=== PATIENT | male | born 1945 | race Caucasian/White ===

== ENCOUNTER 2017-09-10 16:45 | Emergency (ER) | payer MEDICARE ==
[~2017-09-10] VITALS: Ht 180.3 cm; Wt 80.7 kg
[~2017-09-10 16:45] MED LIST: ACETAMINOPHEN325 M1 PO; ACIDOPHILUS1 EAC1 PO; ACTOS45 MG PO; ANTIVERT25 MG PO; AUGMENTIN 500-1 EACH PO; CENTRUM SILVER1 EAC3 PO; CLINDAMYCIN HC300 MG PO; CYANOCOBAL1000 MCG/M INJ; DOCUSATE SODIU100 M1 PO; DOCUSATE SODIU100 MG PO; FERROUS SULFAT325 M1 PO; FERROUS SULFAT325 MG PO; FLUDROCORTISON0.1 MG PO; GLIPIZIDE10 MG; GLIPIZIDE5 MG PO; GUAIFENESI100 MG/5 M PO; IBUPROFEN400 MG PO; LEVEMIR100 UNIT/1 SC; LIDODERM700 MG TOP; LOVASTATIN40 MG PO; METOPROLOL SUCC25 MG PO; METOPROLOL TART25 MG PO; METOPROLOL TART50 MG PO; MIDODRINE HCL2.5 MG PO; MULTILEX1 EACH PO; MULTIVITAMINS1 EAC7 PO; NORCO 5-325 TA1 EACH PO; NOVOLOG100 UNIT/1 SC; NOVOLOG100 UNIT/1 SQ; OMEPRAZOLE PO; ONDANSETRO4 MG/UDTAB SL; ONDANSETRON HCL4 MG PO; OXYBUTYNIN CHLOR5 MG PO; PANTOPRAZOLE SO40 MG PO; PHENERGAN SUPP25 MG RC; PIPERACIL-TA3.375 GM IV; PRILOSEC20 MG PO; SANTYL15 GM TOP; SUCRALFATE1 GM PO; ULTRAM 50MG50 MG PO; ULTRAM50 MG PO; VANCOMYCIN HCL1 GM PO; VITAMIN C500 M4 PO; VITAMIN D250000 UNIT PO; XANAX0.5 MG PO; ZINC OXIDE30 GM TOP
[2017-09-10] MEDS ORDERED: ACETAMINOPHEN/CODEINE 300MG - 30MG TAB PO ONE (17:45)
--- NOTE | 2017-09-10 18:50 | Diagnostic Imaging Report ---
PROCEDURE:KNEE LEFT THREE VIEWS COMPARISON:None. 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 There are 2 fixating proximal tibial pins. There also surgical clips and small ossified fragments adjacent to the proximal tibia. 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 Vascular calcifications. No suprapatellar joint effusion. CONCLUSION: Status post left lower extremity amputation at the level of the proximal tibial diaphysis. 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 Tiny ossified densities adjacent to the proximal tibia are probably postsurgical, although small avulsion fractures cannot be entirely excluded. Dictated by: Robert Mclaughlin M.D. on 09/10/2017 at 18:59 Electronically approved by: Robert Mclaughlin M.D. on 09/10/2017 at 18:59
[2017-09-10] MEDS ORDERED: ACETAMINOPHEN/CODEINE 300MG - 30MG TAB ONE (20:58)
== END 2017-09-10 22:30 | disposition home or self-care (01) ==
LOC: ER 16:45
DX: T87.81 Dehiscence of amputation stump (principal); W18.11XA Fall from or off toilet without subsequent striking against object, initial encounter; Y92.002 Bathroom of unspecified non-institutional (private) residence as the place of occurrence of the external cause; Z95.1 Presence of aortocoronary bypass graft
CPT/HCPCS: 99283

== ENCOUNTER 2017-09-18 12:58 | Observation (INO) | payer MEDICARE ==
[~2017-09-18] VITALS: Ht 180.3 cm; Wt 71.7 kg
[2017-09-18] MEDS ORDERED: ASPIRIN 81 MG CHEW TAB PO STA (13:02)
--- NOTE | 2017-09-18 13:51 | Diagnostic Imaging Report ---
PROCEDURE: A single AP view of the chest. COMPARISON: Patients [facility], CT, CT CHEST WO, 05/25/2016, 10:29. Patients [facility], DX, CHEST 2 VIEWS, 06/21/2017, 10:45. INDICATIONS: RIGHT SIDE RIB PAIN. FINDINGS: Lines/tubes: None. Lungs: Lungs are mildly hypoinflated. Multiple linear opacities are again noted in the lateral aspect of the right lung, with sutures projecting in the right upper lung, likely reflecting postoperative changes/scarring. No consolidation. Pleura: Slight increase in blunting of the left lateral costophrenic sulcus. Heart and mediastinum: Stable cardiomegaly. Central pulmonary venous congestion. Bones: No acute bony abnormality. No acute displaced fracture or dislocation. Degenerative changes in bilateral glenohumeral joints. IMPRESSION: 1. slight increase in blunting of the left lateral costophrenic sulcus, which may represent increased pleural thickening versus small pleural effusion. No consolidation. 2. Central pulmonary venous congestion. Brendan Keys M.D. Dictated by: Brendan Keys M.D. on 09/18/2017 at 14:01 Electronically approved by: Brendan Keys M.D. on 09/18/2017 at 14:01
[2017-09-18 15:06] LABS: BASOPHILS % 0.3 % (0.0-1.0); EOSINOPHILS # (AUTO) 0.2 (0.0-0.4); EOSINOPHILS % 1.8 % (0.0-6.0); HEMATOCRIT 35.9 % (38.2-49.6); HEMOGLOBIN 11.5 g/dL (14.0-18.0); LYMPHOCYTES # (AUTO) 3.6 (1.0-3.2); LYMPHOCYTES % 30.8 % (18.0-39.1); MEAN CORPUSCULAR VOLUME 90.4 fL (81-99); MONOCYTES # (AUTO) 0.8 (0.2-0.8); MONOCYTES % 6.7 % (4.4-11.3); NEUTROPHILS # (AUTO) 7.1 (2.1-6.9); NEUTROPHILS % 60.1 % (38.7-80.0); PLATELET COUNT 289 x10e3/uL (140-360); RED BLOOD COUNT 3.97 x10e6/uL (4.3-5.7); RED CELL DISTRIBUTION WIDTH 14.7 % (11.7-14.4)
[2017-09-18 15:10] LABS: INR 0.94
[2017-09-18 15:11] LABS: PARTIAL THROMBOPLASTIN TIME 28.5 seconds (23.8-35.5)
[2017-09-18 15:18] LABS: ALBUMIN 3.2 g/dL (3.5-5.0); ALBUMIN/GLOBULIN RATIO 0.9 (0.8-2.0); ANION GAP 15.7 mmol/L (8-16); CALCIUM 9.2 mg/dL (8.4-10.2); CREATININE, SERUM 1.61 mg/dL (0.72-1.25); POTASSIUM 5.7 mmol/L (3.5-5.1)
[2017-09-18 15:27] LABS: CREATINE KINASE MB 1.8 ng/mL (0.00-5.00); TROPONIN I 0.024 ng/mL (0-0.300)
[2017-09-18 17:02] LABS: ALBUMIN 3.7 g/dL (3.5-5.0); ALBUMIN/GLOBULIN RATIO 1.1 (0.8-2.0); ANION GAP 17.3 mmol/L (8-16); CALCIUM 9.6 mg/dL (8.4-10.2); CREATININE, SERUM 1.73 mg/dL (0.72-1.25)
[2017-09-18 17:08] LABS: CREATINE KINASE MB 1.8 ng/mL (0.00-5.00); TROPONIN I 0.031 ng/mL (0-0.300)
[2017-09-18 17:11] LABS: POTASSIUM 5.3 mmol/L (3.5-5.1)
[2017-09-18] MEDS ORDERED: SODIUM CHLORIDE 0.9% 500ML 500 ML IV STA (17:38)
[2017-09-18 19:02] LABS: BILIRUBIN,URINE NEGATIVE (NEGATIVE); KETONES,URINE NEGATIVE (NEGATIVE); LEUKOCYTE ESTERASE ,URINE NEGATIVE (NEGATIVE); NITRITE,URINE NEGATIVE (NEGATIVE); PROTEIN,URINE DIPSTICK NEGATIVE (NEGATIVE); URINE UROBILINOGEN 0.2 mg/dL (0.2 - 1)
[2017-09-18 19:03] LABS: CLARITY,URINE CLEAR (CLEAR); COLOR,URINE YELLOW (YELLOW)
[2017-09-18] MEDS ORDERED: SODIUM CHLORIDE 0.9% 250ML 500 ML ONE (20:18)
[2017-09-18] MEDS: HYDROCODONE/APAP 7.5MG-325MG 1 EA TAB PO PRN (20:20)
[2017-09-18] MEDS ORDERED: DEXTROSE 50% SYRINGE 50 ML IV PRN (22:30)
--- NOTE | 2017-09-18 23:06 | Diagnostic Imaging Report ---
EXAM: VQ LUNG SCAN VENT PERFUSION DATE: 09/18/2017 12:00 AM Time stamp on exam: 2257 hours INDICATION: ] Pain, left rib pain, recent lower extremity amputation now with severe chest pain COMPARISON: None FINDINGS: Ventilation images of the lungs were obtained in multiple projections following administration of 20 mCi of Xenon gas via inhalation. Distribution of tracer activity is mildly irregular throughout the lungs. No segmental ventilatory defects are identified. Perfusion images of the lungs in multiple projections were obtained following intravenous administration of 6.2mCi of Tc-99m MAA. Distribution of tracer activity is mildly irregular throughout the lungs. There are no segmental perfusion defects of any size. The perfusion images are well matched to the aerosol images. The cardiac silhouette is unremarkable. IMPRESSION: Scan findings represent a very low probability for acute pulmonary embolic disease based on the PIOPED II criteria. Signed by: Dr. Denisse Alvarado M.D. on 09/18/2017 11:02 PM
[2017-09-19] VITALS (9 sets, daily range): BP systolic 103–161; BP diastolic 50–70
[2017-09-19] MEDS: HYDROCODONE/APAP 7.5MG-325MG 1 EA TAB PO PRN (06:19)
[2017-09-19 06:43] LABS: BASOPHILS % 0.3 % (0.0-1.0); EOSINOPHILS # (AUTO) 0.3 (0.0-0.4); EOSINOPHILS % 2.5 % (0.0-6.0); HEMATOCRIT 29.7 % (38.2-49.6); HEMOGLOBIN 9.7 g/dL (14.0-18.0); LYMPHOCYTES % 27.9 % (18.0-39.1); MEAN CORPUSCULAR HGB CONC 32.7 g/dL (31-35); MEAN CORPUSCULAR VOLUME 88.9 fL (81-99); MONOCYTES # (AUTO) 0.8 (0.2-0.8); MONOCYTES % 7.1 % (4.4-11.3); NEUTROPHILS # (AUTO) 6.7 (2.1-6.9); NEUTROPHILS % 61.8 % (38.7-80.0); PLATELET COUNT 249 x10e3/uL (140-360); RED BLOOD COUNT 3.34 x10e6/uL (4.3-5.7); RED CELL DISTRIBUTION WIDTH 14.7 % (11.7-14.4)
[2017-09-19 07:04] LABS: TROPONIN I 0.018 ng/mL (0-0.300)
[2017-09-19 07:05] LABS: ALANINE AMINOTRANSFERASE 11 IU/L (0-55); ALBUMIN 2.6 g/dL (3.5-5.0); ALKALINE PHOSPHATASE 66 IU/L (40-150); ANION GAP 10.3 mmol/L (8-16); BLOOD UREA NITROGEN 27 mg/dL (7-26); BUN/CREATININE RATIO 20 (6-25); CALCIUM 8.4 mg/dL (8.4-10.2); CARBON DIOXIDE 26 mmol/L (22-29); CHLORIDE 107 mmol/L (98-107); CHOL/HDL RATIO 4.5 (3.9-4.7); CHOLESTEROL 127 MD/DL (0-199); CREATININE, SERUM 1.32 mg/dL (0.72-1.25); EST GLOMERULAR FILTRATION RATE 53 ML/MIN (60-); GLUCOSE 132 mg/dL (74-118); HDL CHOLESTEROL 28 MG/DL (40-60); LDL CHOLESTEROL 84 MG/DL (60-130); POTASSIUM 4.3 mmol/L (3.5-5.1); SODIUM 139 mmol/L (136-145); TRIGLYCERIDES 76 MG/DL (0-149)
[2017-09-19 07:09] LABS: CREATINE KINASE < 7 IU/L (30-200)
[2017-09-19] MEDS: INSULIN REGULAR, HUMAN 100 UNIT/1 ML 3ML VIAL SQ SCH ×2 (07:30→11:30)
[2017-09-19] MEDS: ASPIRIN 81 MG ENTERIC COATED PO SCH (09:21)
[2017-09-19] MEDS ORDERED: CITRATE OF MAGNESIA 300ML BOTTLE PO ONE (12:45)
[2017-09-19] MEDS ORDERED: ALPRAZOLAM 0.5 MG TAB PO SCH (12:45)
[2017-09-19] MEDS ORDERED: DEXTROSE 50% SYRINGE 50 ML IV PRN (12:45)
[2017-09-19] MEDS ORDERED: HYDROCODONE/APAP 5MG-325MG TAB PO PRN (12:45)
[2017-09-19] MEDS ORDERED: GUAIFENESIN 200 MG/10 ML UDC PO PRN (12:45)
[2017-09-19] MEDS ORDERED: ALPRAZOLAM 0.5 MG TAB PO PRN (13:15)
[2017-09-19] MEDS ORDERED: SUCRALFATE 1 GM TAB PO SCH (15:00)
[2017-09-19] MEDS: FLUDROCORTISONE ACETATE 0.1 MG TAB PO SCH ×2 (15:02→20:30)
[2017-09-19] MEDS: MIDODRINE 2.5 MG TAB PO SCH ×2 (15:02→20:30)
[2017-09-19] MEDS: PIPER-TAZ 3.375 GM 50 ML IV SCH ×2 (15:02→19:27)
[2017-09-19] MEDS: INSULIN LISPRO 100 UNIT/1 ML 3ML VIAL SQ SCH ×2 (16:30→20:30)
[2017-09-19] MEDS: ONDANSETRON HCL INJ 2 MG/ML VIAL IV PRN (17:08)
[2017-09-19] MEDS: PANTOPRAZOLE SOD 40 MG TABEC PO SCH (17:37)
[2017-09-19] MEDS: SUCRALFATE 1 GM TAB PO SCH (17:37)
[2017-09-19] MEDS: METOPROLOL TARTRATE 50 MG TAB PO SCH (17:37)
[2017-09-19] MEDS: LUBIPROSTONE 24 MCG CAP PO SCH (17:41)
[2017-09-19] MEDS: KETOROLAC TROMETHAMINE 30 MG/ML VIAL IM SCH (17:41)
[2017-09-19] MEDS ORDERED: SODIUM CHLORIDE 0.9% 250ML 250 ML ONE (19:34)
[2017-09-19] MEDS: ONDANSETRON HCL 4 MG ORAL DISINTEGRATING TAB SL PRN ×2 (19:40→23:40)
[2017-09-20] VITALS: BP 126/60
[2017-09-20] MEDS: PIPER-TAZ 3.375 GM 50 ML IV SCH ×3 (01:38→15:13)
[2017-09-20] MEDS: ONDANSETRON HCL 4 MG ORAL DISINTEGRATING TAB SL PRN ×3 (03:40→15:17)
[2017-09-20 04:00] VITALS: BP 156/67
[2017-09-20] MEDS: KETOROLAC TROMETHAMINE 30 MG/ML VIAL IM SCH ×3 (05:32→11:54)
[2017-09-20] MEDS: INSULIN LISPRO 100 UNIT/1 ML 3ML VIAL SQ SCH ×3 (07:30→16:15)
[2017-09-20] MEDS ORDERED: GLIPIZIDE 5 MG TAB PO SCH (07:30)
[2017-09-20 07:31] VITALS: BP 125/60
[2017-09-20] MEDS: SUCRALFATE 1 GM TAB PO SCH ×2 (08:00→12:00)
[2017-09-20] MEDS: LUBIPROSTONE 24 MCG CAP PO SCH (08:03)
[2017-09-20] MEDS: ASPIRIN 81 MG ENTERIC COATED PO SCH (08:48)
[2017-09-20] MEDS: FLUDROCORTISONE ACETATE 0.1 MG TAB PO SCH ×2 (08:49→15:00)
[2017-09-20] MEDS: MIDODRINE 2.5 MG TAB PO SCH ×2 (08:49→15:00)
[2017-09-20] MEDS: METOPROLOL TARTRATE 50 MG TAB PO SCH (08:51)
[2017-09-20] MEDS: PANTOPRAZOLE SOD 40 MG TABEC PO SCH (08:51)
[2017-09-20] MEDS ORDERED: PIPERACILLIN/TAZOBAC 3.375 GM VIAL IV SCH (09:00)
[2017-09-20] MEDS ORDERED: MULTIVITAMINS/MINERALS TAB PO SCH (09:00)
[2017-09-20] MEDS ORDERED: DOCUSATE SODIUM 100 MG CAP PO SCH (09:00)
[2017-09-20 11:25] VITALS: BP 129/74
[2017-09-20] MEDS: ONDANSETRON HCL INJ 2 MG/ML VIAL IV PRN (11:31)
[2017-09-20] MEDS ORDERED: AMITIZA24 MCG PO ×2 (13:48)
[2017-09-20 15:29] VITALS: BP 127/60
== END 2017-09-20 17:03 ==
LOC: ER 12:58 → ERHOLD 22:37 → IMCU 23:38
DX: R07.89 Other chest pain (principal); N28.9 Disorder of kidney and ureter, unspecified; I25.10 Atherosclerotic heart disease of native coronary artery without angina pectoris; Z89.512 Acquired absence of left leg below knee; E11.51 Type 2 diabetes mellitus with diabetic peripheral angiopathy without gangrene
CPT/HCPCS: 36415 ×3; 71010; 78582; 80053 ×2; 80061; 81001; 82550 ×2; 82553 ×2; 82948 ×2; 83880; 84484 ×2; 85025 ×2; 85610; 85730; 93005; 96360; 99284; A9540; A9558; G0378 ×3; J2405 ×2; J2543 ×2; J7050 ×2; 71045

== ENCOUNTER → 2018-12-25 | Day surgery (SDC) | payer MEDICARE ==
[~2018-12-25] MED LIST changes: +AMITIZA24 MCG PO; +ASPIRIN81 MG PO; +ATORVASTATIN CA20 MG PO; +BISACODYL5 MG PO; +COLCRYS0.6 MG PO; +COMBIVENT RESPIM4 GM IH; +GABAPENTIN300 MG PO; +HUMALOG100 UNIT/1 SC; +HYDROCORTISONE SOD SUCCINATE 100 MG VIAL ONE; +LACTULOSE20 GM/30 M PO; +PHENYLEPHRINE HCL 1% 10 MG/ML VIAL ONE; +PREDNISONE20 MG PO; +PROPOFOL IV EMULSION 10 MG/ML 20 ML VIAL ONE; +TYLENOL PO; +VERAPAMIL HCL 2.5 MG/ML 2 ML VIAL ONE
--- OUTSIDE RECORDS SUMMARY | 2018-12-25 10:51 | XMS REPORT ---
Author Author [facility] Address Unknown Phone Unavailable Care Team Providers Care Damper Worker Name Role Phone LESLIE PADILLA Unavailable Unavailable Janine DE Unavailable Unavailable JEROMY PADILLA Unavailable Unavailable Problems This patient has no known problems. Allergies, Adverse Reactions, Alerts This patient has no known allergies or adverse reactions. Medications This patient has no known medications. Results Test Description Test Time Test Comments Text Results Atomic Results Result Comments CHEST SINGLE (PORTABLE) [place] [address] Patient Name: JACEK HURTADO JR MR #: [id number] : 1945 Age/Sex: 72/M Acct #: [id number] Req #: [id number] Adm Physician: Ordered by: EVA NAIDU MD Report #: [id number] Location: ER Room/Bed: Procedure: [id number] DX/CHEST SINGLE (PORTABLE) Exam Date: 09/18/17 Exam Time: 1320 REPORT STATUS: Signed PROCEDURE: A single AP view of the chest. COMPARISON: [facility], CT, CT CHEST WO, 05/25/2016, 10:29. [facility], DX, CHEST 2 VIEWS, 06/21/2017, 10:45. INDICATIONS: RIGHT SIDE RIB PAIN. FINDINGS: Lines/tubes: None. Lungs: Lungs are mildly hypoinflated. Multiple linear opacities are again noted in the lateral aspect of the right lung, with sutures projecting in the right upper lung, likely reflecting postoperative changes/scarring. No consolidation. Pleura: Slight increase in blunting of the left lateral costophrenic sulcus. Heart and mediastinum: Stable cardiomegaly. Central pulmonary venous congestion. Bones: No acute bony abnormality. No acute displaced fracture or dislocation. Degenerative changes in bilateral glenohumeral joints. IMPRESSION: 1. slight increase in blunting of the left lateral costophrenic sulcus, which may represent increased pleural thickening versus small pleural effusion. No consolidation. 2. Central pulmonary venous congestion. Jm Keys M.D. Dictated by: Jm Keys M.D. on 09/18/2017 at 14:01 Electronically approved by: Jm Keys M.D. on 09/18/2017 at 14:01 Dictated By: JM KEYS MD 140 Transcribed By: HARJINDER on 09/18/17 1401 COPY TO: EVA NAIDU MD VQ LUNG SCAN VENT PERFUSION [place] [address] Patient Name: JACEK HURTADO JR MR #: [id number] : 1945 Age/Sex: 72/M Acct #: [id number] Req #: [id number] Adm Physician: LESLIE PADILLA MD Ordered by: EVA NAIDU MD Report #: [id number] Location: [facility] Room/Bed: [place] [address] Procedure: [id number] NM/VQ LUNG SCAN VENT PERFUSION Exam Date: Exam Time: REPORT STATUS: Signed EXAM: VQ LUNG SCAN VENT PERFUSION DATE: 09/18/2017 12:00 AM Time stamp on exam: 2257 hours INDICATION: ] Pain, left rib pain, recent lower extremity amputation now with severe chest pain COMPARISON: None FINDINGS: Ventilation images of the lungs were obtained in multiple projections following administration of 20 mCi of Xenon gas via inhalation. Distribution of tracer activity is mildly irregular throughout the lungs. No segmental ventilatory defects are identified. Perfusion images of the lungs in multiple projections were obtained following intravenous administration of 6.2mCi of Tc-99m MAA. Distribution of tracer activity is mildly irregular throughout the lungs. There are no segmental perfusion defects of any size. The perfusion images are well matched to the aerosol images. The cardiac silhouette is unremarkable. IMPRESSION: Scan findings represent a very low probability for acute pulmonary embolic disease based on the PIOPED II criteria. Signed by: Dr. Shankar Hall M.D. on 09/18/2017 11:02 PM Dictated By: SHANKAR HALL MD 01 Transcribed By: VENKAT on 2301 COPY TO: EVA NAIDU MD KNEE LEFT THREE VIEWS [place] [address] Patient Name: JACEK HURTADO JR MR #: [id number] : 1945 Age/Sex: 72/M Acct #: [id number] Req #: [id number] Adm Physician: Ordered by: ROSHNI HARRIS NP Report #: [id number] Location: ER Room/Bed: Procedure: [id number] DX/KNEE LEFT THREE VIEWS Exam Date: Exam Time: REPORT STATUS: Signed PROCEDURE: KNEE LEFT THREE VIEWS COMPARISON: None. 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 There are 2 fixating proximal tibial pins. There also surgical clips and small ossified fragments adjacent to the proximal tibia. 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 Vascular calcifications. No suprapatellar joint effusion. CONCLUSION: Status post left lower extremity amputation at the level of the proximal tibial diaphysis. 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 Tiny ossified densities adjacent to the proximal tibia are probably postsurgical, although small avulsion fractures cannot be entirely excluded. Dictated by: Robert You M.D. on 09/10/2017 at 18:59 Electronically approved by: Robert You M.D. on 09/10/2017 at 18:59 Dictated By: ROBERT YOU MD 58 Transcribed By: HARJINDER on 09/10/171858 COPY TO: ROSHNI HARRIS DRAPERY OPERATOR CHEST 2 VIEWS [place] [address] Patient Name: JACEK HURTADO JR MR #: [id number] : 1945 Age/Sex: 71/M Req #: [id number] Adm Physician: Ordered by: JEROMY PADILLA MD Report #: [id number] Location: [facility] Room/Bed: Procedure: [id number] DX/CHEST 2 VIEWS Exam Date: 06/21/17 Exam Time: 1150 REPORT STATUS: Signed PROCEDURE: X-RAY CHEST, TWO VIEWS COMPARISON: CT chest without contrast 05/25/2016. INDICATIONS: LEFT RIB PAIN FEW WEEKS FINDINGS: The lungs are well-inflated. There is stable right lateral pleural thickening with adjacent linear opacity compatible with fibrotic change. No new airspace consolidation, pleural effusion, or pneumothorax. Right basal nodular opacities with associated consolidation are seen to better advantage on comparison CT. Chronic anterior compression deformity of a lower thoracic vertebral body is unchanged. Median sternotomy wires. Stable cardiomediastinal contour. No acute osseous abnormality. CONCLUSION: No acute cardiopulmonary abnormality. No displaced left rib fracture or pneumothorax. Dictated by: Kaiser Mccormack M.D. on 06/21/2017 at 12:15 Electronically approved by: Kaiser Mccormack M.D. on 06/21/2017 at 12:15 Dictated By: KAISER MCCORMACK MD 1215 Transcribed By: HARJINDER on 06/21/17 1215 COPY TO: JEROMY PADILLA MD RIBS UNILAT W/CXR [place] [address] Patient Name: JACEK HURATDO JR MR #: [id number] : 1945 Age/Sex: 71/M Req #: [id number] Adm Physician: Ordered by: JEROMY PADILLA MD Report #: [id number] Location: [facility] Room/Bed: Procedure: [id number] DX/CESAR UNILAT W/CXR Exam Date: 06/21/17 Exam Time: 1150 REPORT STATUS: Signed PROCEDURE: X-RAY UNILATERAL RIBS WITH CHEST X-RAY COMPARISON: Chest radiograph same day. CT scan of the chest without contrast 05/25/2016. INDICATIONS: LEFT SIDE RIB PAIN FOR A FEW WEEKS FINDINGS: No displaced left rib fracture or pneumothorax. Midline right upper extremity PICC. Clear lungs with stable right basal nodular opacities. Healed fracture deformities of the left eighth through 11th ribs. Multilevel degenerative disc changes of the thoracic spine. Moderate chronic anterior compression deformity of T11. Atherosclerotic vascular calcifications. CONCLUSION: no acute, displaced left rib fracture or pneumothorax. Multiple healed fracture deformities of several lower left-sided ribs. Dictated by: Kaiser Mccormack M.D. on 06/21/2017 at 12:20 Electronically approved by: Kaiser Mccormack M.D. on 06/21/2017 at 12:20 Dictated By: KAISER MCCORMACK MD 1220 Transcribed By: HARJINDER on 06/21/17 1220 COPY TO: JEROMY PADILLA MD
--- OUTSIDE RECORDS SUMMARY | 2018-12-25 10:51 | XMS REPORT | Continuity of Care Document ---
Author Author [facility] Interface Address Unknown Phone Unavailable Problems Problem Status Onset Date Classification Date Reported Comments Source Uncontrolled diabetes mellitus Active 06/15/2015 Problem 09/20/2017 [facility] Vomiting Active 06/15/2015 Problem 09/20/2017 [facility] Facial cellulitis Active 05/31/2015 Problem 09/20/2017 [facility] Hyponatremia Active 05/31/2015 Problem 09/20/2017 [facility] Leukocytosis Active 05/31/2015 Problem 09/20/2017 [facility] Dehydration Active 04/28/2015 Problem 09/20/2017 [facility] Hyperkalemia Active 04/28/2015 Problem 09/20/2017 [facility] Renal insufficiency Active 04/28/2015 Problem 09/20/2017 [facility] Acute renal failure Active 03/05/2015 Problem 09/20/2017 [facility] Adverse reaction to vaccine Active 03/05/2015 Problem 09/20/2017 [facility] Atrial fibrillation with RVR Active 03/05/2015 Problem 09/20/2017 [facility] CHF Active 03/05/2015 Problem 09/20/2017 [facility] Febrile illness Active 03/05/2015 Problem 09/20/2017 [facility] Chest pain Active Problem 09/20/2017 [facility] Medications Medication Details Route Status Patient Instructions Ordering Provider Order Date Source Glipizide 5 Mg Tablet, 10 Mg Oral Twice A Day Active 05/22/2017 [facility] Omeprazole , 20 Mg Oral Twice A Day Active 05/22/2017 [facility] Amoxicillin/Potassium Clav (Augmentin 500-125 Tablet) 1 Each Tablet, 500 Mg Oral Three Times A Day Active 06/16/2015 [facility] Clindamycin Hcl 300 Mg Capsule, 300 Mg Oral Four Times Daily Active 05/30/2015 [facility] Cyanocobalamin (Cyanocobalamin Injection) 1,000 Mcg/Ml Soln, 1000 Mcg Injection Daily Active 05/30/2015 [facility] Fludrocortisone Acetate 0.1 Mg Tab, 0.1 Mg Oral Weekly Active 05/30/2015 [facility] Glipizide 10 Mg Tablet, 10 Mg Daily Active 05/30/2015 [facility] Ibuprofen 400 Mg Tablet, 400 Mg Oral Every 4 Hours as needed for Pain Active 05/30/2015 [facility] Lovastatin 40 Mg Tablet, 1 Each Oral Bedtime Active 05/30/2015 [facility] Metoprolol Tartrate 25 Mg Tablet, 20 Mg Oral Twice A Day Active 05/30/2015 [facility] Mu-Vits-Min Th/Lycopene/Lutein (Centrum Silver Tablet) 1 Each Tablet, 1 Each Oral Daily Active 05/30/2015 [facility] Oxybutynin Chloride 5 Mg Tablet, 5 Mg Oral Bedtime Active 05/30/2015 [facility] Pioglitazone Hcl (Actos) 45 Mg Tablet, 45 Mg Oral Daily Active 05/30/2015 [facility] Sucralfate 1 Gm Tablet, 1 Gm Oral Before Meals And At Bedtime Active 05/30/2015 [facility] Acetaminophen 325 Mg Tablet, 650 Mg Oral Every 4 Hours as needed Active 02/24/2014 [facility] Docusate Sodium 100 Mg Tablet, 100 Mg Oral Twice A Day Active 02/24/2014 [facility] Ferrous Sulfate 325 Mg Tablet, 325 Mg Oral Twice A Day Active 02/24/2014 [facility] Meclizine Hcl (Antivert) 25 Mg Tablet, 12.5 Mg Oral Three Times A Day Active 02/24/2014 [facility] Ondansetron Hcl 4 Mg Tablet, 4 Mg Oral Every 4 Hours as needed Active 02/24/2014 [facility] Tramadol Hcl (Ultram) 50 Mg Tablet, 50 Mg Oral As Needed Active 02/24/2014 [facility] Alprazolam (Xanax) 0.5 Mg Tablet As Needed Active [facility] Docusate Sodium 100 Mg Capsule Daily Active [facility] Ergocalciferol (Vitamin D2) (Vitamin D2) 50,000 Unit Capsule Weekly Active [facility] Ferrous Sulfate 325 Mg Tablet Twice A Day Active [facility] Fludrocortisone Acetate 0.1 Mg Tab Three Times A Day Active [facility] Glipizide 5 Mg Tablet Daily Active [facility] Guaifenesin 100 Mg/5 Ml Liquid Every 4 Hours as needed for Prn Active [facility] Hydrocodone Bit/Acetaminophen ([place] 5-325 Tablet) 1 Each Tablet Every 4 Hours as needed for Prn Active [facility] Insulin Aspart (Novolog) 100 Unit/1 Ml Cartridge Before Meals And At Bedtime Active [facility] Lubiprostone (Amitiza) 24 Mcg Capsule Twice Daily With Meals Active [facility] Metoprolol Tartrate 50 Mg Tablet Twice A Day Active [facility] Midodrine Hcl 2.5 Mg Tablet Three Times A Day Active [facility] Multivitamin (Multivitamins) 1 Each Capsule Daily Active [facility] Ondansetron Hcl (Ondansetron Odt) 4 Mg/Udtablet Tabdp Every 4 Hours as needed for Nausea Active [facility] Pantoprazole Sodium (Protonix) 40 Mg Tablet.dr Twice A Day Active [facility] Piperacillin Sodium/Tazobactam (Piperacil-Tazobact 3.375 Gm Vl) 3.375 Gm Vial Daily Active [facility] Sucralfate 1 Gm Tablet Three Times A Day Active [facility] Allergies, Adverse Reactions, Alerts Substance Category Reaction Severity Reaction type Status Date Reported Comments Source Morphine hallucinations, disorientation Intermediate Allergy to Substance Active 08/28/2012 [facility] Metoclopramide TREMORS Intermediate Allergy to Substance Active 03/15/2015 [facility] Meperidine Mild Allergy to Substance Active 06/16/2015 [facility] Immunizations Immunization Date Given Site Status Last Updated Comments Source Results Order Name Results Value Reference Range Date Interpretation Comments Source Capillary blood glucose measurement by glucometer (mass/volume) Capillary blood glucose measurement by glucometer (mass/volume) 120 70 - 120 09/20/2017 [facility] Automated blood basophil count (count/volume) Automated blood basophil count (count/volume) 0.0 0.0 - 0.1 09/19/2017 [facility] Automated blood basophil count as percentage of total leukocytes Automated blood basophil count as percentage of total leukocytes 0.3 0.0 - 1.0 09/19/2017 [facility] Automated blood eosinophil count Automated blood eosinophil count 0.3 0.0 - 0.4 09/19/2017 [facility] Automated blood eosinophil count as percentage of total leukocytes Automated blood eosinophil count as percentage of total leukocytes 2.5 0.0 - 6.0 09/19/2017 [facility] Automated blood hematocrit (volume fraction) Automated blood hematocrit (volume fraction) 29.7 38.2 - 49.6 09/19/2017 [facility] Automated blood lymphocyte count as percentage ot total leukocytes Automated blood lymphocyte count as percentage ot total leukocytes 27.9 18.0 - 39.1 09/19/2017 [facility] Automated blood monocyte count as percentage of total leukocytes Automated blood monocyte count as percentage of total leukocytes 7.1 4.4 - 11.3 09/19/2017 [facility] Automated blood neutrophil count Automated blood neutrophil count 6.7 2.1 - 6.9 09/19/2017 [facility] Automated blood platelet count (count/volume) Automated blood platelet count (count/volume) 249 140 - 360 09/19/2017 [facility] Automated blood segmented neutrophil count as percentage of total leukocytes Automated blood segmented neutrophil count as percentage of total leukocytes 61.8 38.7 - 80.0 09/19/2017 [facility] Automated erythrocyte mean corpuscular hemoglobin (mass per erythrocyte) Automated erythrocyte mean corpuscular hemoglobin (mass per erythrocyte) 29.0 28 - 32 09/19/2017 [facility] Automated erythrocyte mean corpuscular hemoglobin concentration measurement (mass/volume) Automated erythrocyte mean corpuscular hemoglobin concentration measurement (mass/volume) 32.7 31 - 35 09/19/2017 [facility] Automated erythrocyte mean corpuscular volume Automated erythrocyte mean corpuscular volume 88.9 81 - 99 09/19/2017 [facility] Blood erythrocytes automated count (number/volume) Blood erythrocytes automated count (number/volume) 3.34 4.3 - 5.7 09/19/2017 [facility] Blood hemoglobin measurement (moles/volume) Blood hemoglobin measurement (moles/volume) 9.7 14.0 - 18.0 09/19/2017 [facility] Blood leukocytes automated count (number/volume) Blood leukocytes automated count (number/volume) 10.79 4.8 - 10.8 09/19/2017 [facility] Blood lymphocytes count (number/volume) Blood lymphocytes count (number/volume) 3.0 1.0 - 3.2 09/19/2017 [facility] Blood monocytes automated count (number/volume) Blood monocytes automated count (number/volume) 0.8 0.2 - 0.8 09/19/2017 [facility] Estimated glomerular filtration rate (GFR) determination Estimated glomerular filtration rate (GFR) determination 53 60 09/19/2017 [facility] Glucose measurement Glucose measurement 132 74 - 118 09/19/2017 [facility] Plasma globulin measurement (mass/volume) Plasma globulin measurement (mass/volume) 2.6 2.3 - 3.5 09/19/2017 [facility] Serum or plasma alanine aminotransferase measurement (enzymatic activity/volume) Serum or plasma alanine aminotransferase measurement (enzymatic activity/volume) 11 0 - 55 09/19/2017 [facility] Serum or plasma albumin measurement (mass/volume) Serum or plasma albumin measurement (mass/volume) 2.6 3.5 - 5.0 09/19/2017 [facility] Serum or plasma albumin/globulin mass ratio Serum or plasma albumin/globulin mass ratio 1.0 0.8 - 2.0 09/19/2017 [facility] Serum or plasma alkaline phosphatase measurement (enzymatic activity/volume) Serum or plasma alkaline phosphatase measurement (enzymatic activity/volume) 66 40 - 150 09/19/2017 [facility] Serum or plasma anion gap Serum or plasma anion gap 10.3 8 - 16 09/19/2017 [facility] Serum or plasma calcium measurement (mass/volume) Serum or plasma calcium measurement (mass/volume) 8.4 8.4 - 10.2 09/19/2017 [facility] Serum or plasma carbon dioxide, total measurement (moles/volume) Serum or plasma carbon dioxide, total measurement (moles/volume) 26 22 - 29 09/19/2017 [facility] Serum or plasma chloride measurement (moles/volume) Serum or plasma chloride measurement (moles/volume) 107 98 - 107 09/19/2017 [facility] Serum or plasma cholesterol in HDL measurement (mass/volume) Serum or plasma cholesterol in HDL measurement (mass/volume) 28 40 - 60 09/19/2017 [facility] Serum or plasma cholesterol in LDL measurement (mass/volume) Serum or plasma cholesterol in LDL measurement (mass/volume) 84 60 - 130 09/19/2017 [facility] Serum or plasma cholesterol measurement (mass/volume) Serum or plasma cholesterol measurement (mass/volume) 127 0 - 199 09/19/2017 [facility] Serum or plasma creatine kinase MB measurement (mass/volume) Serum or plasma creatine kinase MB measurement (mass/volume) 1.30 0.00 - 5.00 09/19/2017 [facility] Serum or plasma creatine kinase measurement (enzymatic activity/volume) Serum or plasma creatine kinase measurement (enzymatic activity/volume) null 30 - 200 09/19/2017 [facility] Serum or plasma creatinine measurement (mass/volume) Serum or plasma creatinine measurement (mass/volume) 1.32 0.72 - 1.25 09/19/2017 [facility] Serum or plasma potassium measurement (moles/volume) Serum or plasma potassium measurement (moles/volume) 4.3 3.5 - 5.1 09/19/2017 [facility] Serum or plasma protein measurement (mass/volume) Serum or plasma protein measurement (mass/volume) 5.2 6.5 - 8.1 09/19/2017 [facility] Serum or plasma sodium measurement (moles/volume) Serum or plasma sodium measurement (moles/volume) 139 136 - 145 09/19/2017 [facility] Serum or plasma total bilirubin measurement (mass/volume) Serum or plasma total bilirubin measurement (mass/volume) 0.5 0.2 - 1.2 09/19/2017 [facility] Serum or plasma total cholesterol/cholesterol in HDL mass ratio Serum or plasma total cholesterol/cholesterol in HDL mass ratio 4.5 3.9 - 4.7 09/19/2017 [facility] Serum or plasma triglyceride measurement (mass/volume) Serum or plasma triglyceride measurement (mass/volume) 76 0 - 149 09/19/2017 [facility] Serum or plasma troponin i.cardiac measurement by detection limit <=0.01 NG/ml (mass/volume) Serum or plasma troponin i.cardiac measurement by detection limit <=0.01 NG/ml (mass/volume) 0.018 0 - 0.300 09/19/2017 [facility] Serum or plasma urea nitrogen measurement (mass/volume) Serum or plasma urea nitrogen measurement (mass/volume) 27 7 - 26 09/19/2017 [facility] Serum or plasma urea nitrogen/creatinine mass ratio Serum or plasma urea nitrogen/creatinine mass ratio 20 6 - 25 09/19/2017 [facility] Red Cell Distribution Width 14.7 11.7 - 14.4 09/19/2017 [facility] IM GRANULOCYTES % 0.4 0.0 - 1.0 09/19/2017 [facility] Absolute Immature Granulocyte (auto 0.04 0 - 0.1 09/19/2017 [facility] Aspartate Amino Transf (AST/SGOT) 12 5 - 34 09/19/2017 [facility] Automated urine sediment leukocyte count by microscopy (number/high power field) Automated urine sediment leukocyte count by microscopy (number/high power field) NONE 0 - 5 09/18/2017 [facility] Bacteria detection in urine sediment by light microscopy Bacteria detection in urine sediment by light microscopy NONE NONE 09/18/2017 [facility] Epithelial cells detection in urine sediment by light microscopy Epithelial cells detection in urine sediment by light microscopy NONE NONE 09/18/2017 [facility] Erythrocytes detection in urine sediment by light microscopy Erythrocytes detection in urine sediment by light microscopy NONE 0 - 5 09/18/2017 [facility] Specific gravity of Urine by Test strip Specific gravity of Urine by Test strip 1.010 1.010 - 1.025 09/18/2017 [facility] Urine clarity Urine clarity CLEAR CLEAR 09/18/2017 [facility] Urine color determination Urine color determination YELLOW YELLOW 09/18/2017 [facility] Urine erythrocytes detection Urine erythrocytes detection NEGATIVE NEGATIVE 09/18/2017 [facility] Urine glucose detection Urine glucose detection NEGATIVE NEGATIVE 09/18/2017 [facility] Urine ketones detection by automated test strip Urine ketones detection by automated test strip NEGATIVE NEGATIVE 09/18/2017 [facility] Urine leukocyte esterase detection by dipstick Urine leukocyte esterase detection by dipstick NEGATIVE NEGATIVE 09/18/2017 [facility] Urine nitrite detection Urine nitrite detection NEGATIVE NEGATIVE 09/18/2017 [facility] Urine pH measurement by automated test strip Urine pH measurement by automated test strip 7 5 - 7 09/18/2017 [facility] Urine protein measurement by test strip (mass/volume) Urine protein measurement by test strip (mass/volume) NEGATIVE NEGATIVE 09/18/2017 [facility] Urine total bilirubin measurement (mass/volume) Urine total bilirubin measurement (mass/volume) NEGATIVE NEGATIVE 09/18/2017 [facility] Urine urobilinogen measurement by test strip (mass/volume) Urine urobilinogen measurement by test strip (mass/volume) 0.2 0.2 - 1 09/18/2017 [facility] Activated partial thromboplastin time (aPTT) in platelet poor plasma bycoagulation assay Activated partial thromboplastin time (aPTT) in platelet poor plasma bycoagulation assay 28.5 23.8 - 35.5 09/18/2017 [facility] INR in Platelet poor plasma by Coagulation assay INR in Platelet poor plasma by Coagulation assay 0.94 09/18/2017 [facility] Prothrombin time (PT) in platelet poor plasma by coagulation assay Prothrombin time (PT) in platelet poor plasma by coagulation assay 13.0 11.9 - 14.5 09/18/2017 [facility] B-Type Natriuretic Peptide 222.1 0 - 100 09/18/2017 [facility] Vital Signs Vital Sign Value Date Comments Source Encounters Location Location Details Encounter Type Encounter Number Reason For Visit Attending Provider ADM Date DC Date Status Source Registered [facility] [id number] JEROMY PADILLA MD 05/22/2017 [facility] Registered Clinic [id number] JEROMY PADILLA MD 06/21/2017 [facility] Departed Emergency Room [id number] TIFFANY DE MD 09/10/2017 09/10/2017 [facility] Discharged Inpatient (obs) [id number] LESLIE PADILLA MD 09/18/2017 09/20/2017 [facility] Procedures Procedure Code Date Perfomer Comments Source X-ray of chest, two views [id number] 06/21/2017 [facility] EGD BIOPSY SINGLE/MULTIPLE [id number] 05/22/2017 [facility] EGD DILATE STRICTURE [id number] 05/22/2017 [facility] DILATE ESOPHAGUS 1/MULT PASS [id number] 05/22/2017 [facility]
--- OUTSIDE RECORDS SUMMARY | 2018-12-25 10:51 | XMS REPORT | Clinical Summary ---
Author Author [facility] Address Unknown Phone Unavailable Care Team Providers Care Shopper Name Role Phone Oleksandr Neumann MD PCP Allergies Comments Active Allergy Reactions Severity Noted Date Codeine 07/20/2017 Meperidine 07/20/2017 Latex 07/20/2017 Morphine 07/20/2017 Metoclopramide Hcl 07/20/2017 Medications End Date Status Medication Sig Dispensed Refills Start Date Active glipiZIDE (GLUCOTROL) 10 Take 10 mg by 0 MG tablet mouth 2 (two) times a day before meals. Active multivitamin (THERAGRAN) Take 1 tablet 0 tablet by mouth daily. Active docusate sodium (COLACE) Take 100 mg 0 100 MG capsule by mouth 2 (two) times a day. Active FREESTYLE LITE STRIPS TEST BG BID 3 strip test strips 7 Active sucralfate (CARAFATE) 1 Take 1 g by 0 gram tablet mouth 4 (four) times a day. Active ALPRAZolam (XANAX) 0.5 MG Take 0.5 mg 0 tablet by mouth every 6 (six) hours as needed for anxiety. Active ondansetron ODT Take 4 mg by 0 (ZOFRAN-ODT) 4 MG mouth every 8 disintegrating tablet (eight) hours as needed for nausea or vomiting. Active oxybutynin (DITROPAN) 5 Take 5 mg by 0 MG tablet mouth 2 (two) times a day. Active gabapentin (NEURONTIN) Take 300 mg 0 300 mg capsule by mouth 2 (two) times a day. Active fludrocortisone 0.1 mg Take 0.1 mg 0 tablet by mouth every other day. Mon, Wed, Fri. Active ketoconazole (NIZORAL) 2 Apply 0 % cream topically 2 (two) times a day. To affected areas Active omeprazole (PriLOSEC) 20 Take 20 mg by 0 MG capsule mouth daily. Active lubiprostone (AMITIZA) 24 Take 24 mcg 0 MCG capsule by mouth 2 (two) times a day with meals. Active metoprolol tartrate Take 50 mg by 0 (LOPRESSOR) 50 mg tablet mouth 2 (two) times a day. Active Problems Problem Noted Date Below knee amputation status 09/11/2017 Atherosclerosis of [place] artery of extremity 07/20/2017 Overview: Added automatically from request for surgery [id number] Family History Medical History Relation Name Comments Liver cancer Father Diabetes Maternal Aunt Heart disease Maternal Aunt Heart disease Maternal Grandfather Hypertension Maternal Grandfather Circulation Problems with Maternal Legs Grandmother Diabetes Maternal Grandmother Heart disease Maternal Grandmother Heart disease Maternal Uncle Diabetes Paternal Grandmother Breast cancer Sister Colon cancer Sister Relation Name Status Comments Father Maternal Aunt Maternal Grandfather Maternal Grandmother Maternal Uncle Paternal Grandmother Sister Social History Date Tobacco Use Types Packs/Day Years Used Never Smoker Smokeless Tobacco: Never Used Alcohol Use Drinks/Week oz/Week Comments No Sex Assigned at Date Recorded Not on file Industry Job Start Date Occupation Not on file Not on file Not on file Travel End Travel History Travel Start No recent travel history available. Last Filed Vital Signs Not on file Plan of Treatment Health Maintenance Due Date Last Done Comments COLON CANCER SCREENING 1993 SHINGLES VACCINES (#1) 1993 65+ PNEUMOCOCCAL VACCINE 2008 (1 of 2 - PCV13) PNEUMOCOCCAL 2008 POLYSACCHARIDE VACCINE AGE 65 AND OVER INFLUENZA VACCINE 03/20/2019 Procedures Comments Procedure Name Priority Date/Time Associated Diagnosis TRANSFUSE RED BLOOD CELLS Routine 04/24/2018 5:45 PM CDT after 12/24/2017 Results * Transfuse RBC (04/24/2018 5:45 PM CDT) after 12/24/2017 Insurance Payer Benefit Subscriber ID Type Phone Address Plan / Group MEDICARE MEDICARE xxxxxxxxxx Medicare [place], [place] PART A AND B Advance Directives Patient has advance care planning documents on file. For more information, gunner freire contact: Rubén Encinas [address] [place] [address]
[2018-12-25 15:45] VITALS: BP 114/71
--- NOTE | 2018-12-25 22:23 | Operative Report ---
DATE OF PROCEDURE: 12/25/2018 SURGEON: Evangelista Chapman MD PROCEDURE: EGD with brushings and biopsies. INDICATION FOR PROCEDURE: Dysphagia to solids, nausea. MEDICATIONS: The patient was done under MAC, please see anesthesiologist's note. PROCEDURE IN DETAIL: With the patient in left lateral decubitus position, a flexible fiberoptic Olympus gastroscope was introduced into the esophagus under direct visualization without any difficulty. There were some whitish plaques noted in the distal esophagus and those were brushed to rule out Consuelo. Esophageal stricture, mild was noted at the GE junction that was dilated to size 50-Citizen [place]. The scope was then advanced with ease into the stomach, traversing a small sliding hiatal hernia. Mucosa overlying the antrum and the body revealed some patchy erythema, [id number] edema, and biopsies were obtained, sent to stain for H pylori. The pylorus was intubated with ease and the scope was advanced all the way to the second portion of the duodenum. Two diverticula were noted, one in the periampullary area and additional one in the proximal second portion. The scope was then withdrawn back into the stomach and retroflexed. Mucosa overlying the fundus and cardia appeared to be within normal limits. The scope was then straightened out, it was subsequently withdrawn. The patient tolerated the procedure well. IMPRESSION: 1. Rule out Consuelo esophagitis. 2. Esophageal stricture at GE junction dilated to size 50-[place]izen [place]. 3. Small sliding hiatal hernia. 4. Gastritis, biopsied. Biopsies sent to stain for H pylori. 5. Duodenal diverticula. PLAN: Follow up histology. Increase Protonix to 40 mg one p.o. a.c. b.i.d. Evangelista Chapman [place] [facility] [facility] [place][id number] cc: Oleksandr Neumann MD
== END | disposition home or self-care (01) ==
LOC: OR 10:48
PROVIDERS: ATTEND Internal Medicine Gastroenterology
DX: K22.2 Esophageal obstruction (principal); K29.70 Gastritis, unspecified, without bleeding; K57.10 Diverticulosis of small intestine without perforation or abscess without bleeding; K20.9 Esophagitis, unspecified; K44.9 Diaphragmatic hernia without obstruction or gangrene; K22.8 Other specified diseases of esophagus; K21.9 Gastro-esophageal reflux disease without esophagitis; I49.3 Ventricular premature depolarization; E11.22 Type 2 diabetes mellitus with diabetic chronic kidney disease; I25.810 Atherosclerosis of coronary artery bypass graft(s) without angina pectoris; I12.9 Hypertensive chronic kidney disease with stage 1 through stage 4 chronic kidney disease, or unspecified chronic kidney disease; N18.9 Chronic kidney disease, unspecified; J44.9 Chronic obstructive pulmonary disease, unspecified; Z88.6 Allergy status to analgesic agent; Z79.82 Long term (current) use of aspirin; Z79.4 Long term (current) use of insulin; Z95.1 Presence of aortocoronary bypass graft
CPT/HCPCS: 36415; 43239; 43450; 82948; 87106; 87205; 88305; 88312; J1720; J2370; J2704